=== PATIENT | male | born 1985 | race Two or more races ===

== ENCOUNTER 2022-03-02 11:45 | Inpatient (IN) | payer MEDICAID ==
[~2022-03-02] VITALS: Ht 188 cm; Wt 110.5 kg
[2022-03-02 12:30] LABS: Basophils # (auto) 0.1 10 ^3/uL (0-0.2); Basophils % (auto) 0.8 % (0.0-2.0); Eosinophils # (auto) 0.2 10 ^3/uL (0-0.8); Eosinophils % (auto) 1.7 % (0.0-7.0); Hematocrit 33.7 % (41.0-53.0); Hemoglobin 10.9 g/dL (13.5-17.5); Lymphocytes # (auto) 2.5 10 ^3/uL (0.4-5.4); Lymphocytes % (auto) 23.5 % (10.0-50.0); Mean Corpuscular Hemoglobin 29.8 pg (28.0-32.0); Mean Corpuscular Hgb Conc. 32.3 g/dL (32.0-36.0); Mean Corpuscular Volume 92.1 fL (80.0-100.0); Monocytes # (auto) 0.6 10 ^3/uL (0-1.3); Monocytes % (auto) 5.3 % (0.0-12.0); Neutrophils # (auto) 7.4 10 ^3/uL (1.6-8.6); Neutrophils % (auto) 68.7 % (37.0-80.0); Red Blood Cells 3.66 10^6/uL (4.5-5.90); Red Cell Distribution Width 12.8 % (11.8-14.3); White Blood Cell 10.7 10^3/uL (4.4-10.8)
[2022-03-02 15:36] LABS: Albumin 3.9 g/dL (3.4-5.0); Calcium 9.3 mg/dL (8.5-10.1); Magnesium 3.8 mg/dL (1.6-2.6); Potassium 5.4 mmol/L (3.5-5.1)
[2022-03-02 16:08] LABS: Bilirubin, Total 0.4 mg/dL (0.2-1.0); Total Protein 7.8 g/dL (6.4-8.2)
[2022-03-02 16:14] LABS: BUN/Creatinine Ratio 6.4
[2022-03-02] MEDS ORDERED: FUROSEMIDE 20 MG/2 ML VIAL IV ONE (16:15)
[2022-03-02] MEDS ORDERED: InsuLIN REG 1unit/0.01ml Soln (100units/ml) IV ONE (16:15)
[2022-03-02] MEDS ORDERED: ALBUTEROL SULF 2.5 MG/0.5ML(0.5%) NEB SOLN NEB ONE (16:15)
[2022-03-02] MEDS ORDERED: DEXTROSE (50%) 50ML SYRG IV ONE (16:15)
[2022-03-02] MEDS ORDERED: SODIUM ZIRCONIUM CYCL 10 GM PAK PO ONE (16:15)
[2022-03-02] MEDS ORDERED: CALCIUM GLUC 1,000mg/50ml-NS 50 ML IV ONE (16:15)
[2022-03-02] MEDS ORDERED: SODIUM BICARBONATE 8.4% INJ 50ML SYRINGE IV ONE (16:15)
[2022-03-02] MEDS ORDERED: MORPHINE SULFATE INJ 2 MG/ml SYRG IV PRN ×2 (17:00)
[2022-03-02] MEDS ORDERED: hydrALAZINE HCL 20 MG/ML VL IV PRN (17:00)
[2022-03-02] MEDS ORDERED: NITROGLYCERIN 0.4 MG SL TAB SL PRN (17:00)
[2022-03-02 18:23] LABS: BUN/Creatinine Ratio 6.6; Calcium 9.2 mg/dL (8.5-10.1); Potassium 4.4 mmol/L (3.5-5.1)
[2022-03-02] MEDS: HEPARIN SODIUM (PORCINE) 5000 UNITS/ML 1ML VIAL SC SCH (22:19)
[2022-03-02 23:00] VITALS: BP 167/95
[2022-03-02] MEDS ORDERED: RIVA2.5T PO (23:26)
[2022-03-02] MEDS ORDERED: CIPR500T4 PO (23:26)
[2022-03-02] MEDS ORDERED: MUPI2CRE17 EX (23:26)
[2022-03-03] VITALS: BP 155/97
[2022-03-03 05:00] VITALS: BP 157/96
[2022-03-03 05:23] LABS: Basophils # (auto) 0 10 ^3/uL (0-0.2); Basophils % (auto) 0.4 % (0.0-2.0); Eosinophils # (auto) 0.1 10 ^3/uL (0-0.8); Eosinophils % (auto) 1.3 % (0.0-7.0); Hematocrit 27.7 % (41.0-53.0); Hemoglobin 9.4 g/dL (13.5-17.5); Lymphocytes # (auto) 2.1 10 ^3/uL (0.4-5.4); Lymphocytes % (auto) 23.8 % (10.0-50.0); Mean Corpuscular Hemoglobin 31.2 pg (28.0-32.0); Mean Corpuscular Hgb Conc. 33.8 g/dL (32.0-36.0); Mean Corpuscular Volume 92.3 fL (80.0-100.0); Monocytes # (auto) 0.5 10 ^3/uL (0-1.3); Monocytes % (auto) 5.2 % (0.0-12.0); Neutrophils # (auto) 6.2 10 ^3/uL (1.6-8.6); Neutrophils % (auto) 69.3 % (37.0-80.0); Red Cell Distribution Width 12.8 % (11.8-14.3)
[2022-03-03 05:56] LABS: Potassium 4.7 mmol/L (3.5-5.1)
[2022-03-03 06:16] LABS: Albumin 3.4 g/dL (3.4-5.0); BUN/Creatinine Ratio 6.8; Bilirubin, Total 0.4 mg/dL (0.2-1.0); Calcium 8.9 mg/dL (8.5-10.1); Total Protein 6.6 g/dL (6.4-8.2)
[2022-03-03 09:00] VITALS: BP 162/95
[2022-03-03] MEDS: HEPARIN SODIUM (PORCINE) 5000 UNITS/ML 1ML VIAL SC SCH ×2 (11:03→22:15)
[2022-03-03 13:00] VITALS: BP 156/98
[2022-03-03 15:47] LABS: Hepatitis C Antibody Negative (Negative)
[2022-03-03] MEDS: SEVELAMER 800 MG TAB PO SCH (18:31)
[2022-03-03 22:00] VITALS: BP 149/96
[2022-03-04 05:00] VITALS: BP 153/93
[2022-03-04] MEDS ORDERED: SODIUM CHL 0.9% 1000 ML BAG XX ONE (07:00)
[2022-03-04 07:07] LABS: Basophils # (auto) 0.1 10 ^3/uL (0-0.2); Basophils % (auto) 0.7 % (0.0-2.0); Eosinophils # (auto) 0.1 10 ^3/uL (0-0.8); Eosinophils % (auto) 1.8 % (0.0-7.0); Hematocrit 30.2 % (41.0-53.0); Hemoglobin 10.1 g/dL (13.5-17.5); Lymphocytes # (auto) 2.1 10 ^3/uL (0.4-5.4); Mean Corpuscular Hemoglobin 30.7 pg (28.0-32.0); Mean Corpuscular Hgb Conc. 33.4 g/dL (32.0-36.0); Mean Corpuscular Volume 91.9 fL (80.0-100.0); Monocytes # (auto) 0.5 10 ^3/uL (0-1.3); Monocytes % (auto) 6.7 % (0.0-12.0); Neutrophils # (auto) 5.2 10 ^3/uL (1.6-8.6); Neutrophils % (auto) 64.8 % (37.0-80.0); Red Blood Cells 3.28 10^6/uL (4.5-5.90); Red Cell Distribution Width 12.7 % (11.8-14.3)
[2022-03-04 07:23] LABS: Potassium 4.8 mmol/L (3.5-5.1)
[2022-03-04 07:29] LABS: BUN/Creatinine Ratio 6.1; Calcium 9.2 mg/dL (8.5-10.1)
[2022-03-04 08:00] VITALS: BP 149/90
[2022-03-04] MEDS: B-COMPLEX W/ C & FOLIC ACID(NEPHROVITE TAB) PO SCH (08:54)
[2022-03-04] MEDS: SEVELAMER 800 MG TAB PO SCH ×3 (08:55→17:05)
[2022-03-04] MEDS: HEPARIN SODIUM (PORCINE) 5000 UNITS/ML 1ML VIAL SC SCH ×2 (10:00→21:00)
[2022-03-04 13:00] VITALS: BP 143/99
[2022-03-04 16:44] VITALS: BP 169/100
[2022-03-04] MEDS ORDERED: EPOETIN ALFA-EPBX 10,000 UNIT/1ML VIAL SC ONE (21:00)
[2022-03-04 21:59] VITALS: BP 155/99
[2022-03-05 05:00] VITALS: BP 148/95
[2022-03-05] MEDS ORDERED: SODIUM CHL 0.9% 1000 ML BAG XX ONE (07:00)
[2022-03-05 09:00] VITALS: BP 151/93
[2022-03-05] MEDS: B-COMPLEX W/ C & FOLIC ACID(NEPHROVITE TAB) PO SCH (09:38)
[2022-03-05] MEDS: SEVELAMER 800 MG TAB PO SCH ×3 (09:38→18:00)
[2022-03-05] MEDS: HEPARIN SODIUM (PORCINE) 5000 UNITS/ML 1ML VIAL SC SCH ×2 (09:39→21:52)
[2022-03-05 13:00] VITALS: BP 157/90
[2022-03-05 16:35] VITALS: BP 147/99
[2022-03-05] MEDS ORDERED: EPOETIN ALFA-EPBX 10,000 UNIT/1ML VIAL SC ONE (21:00)
[2022-03-05 22:00] VITALS: BP 152/95
[2022-03-06] VITALS (7 sets, daily range): BP systolic 122–175; BP diastolic 90–99
[2022-03-06] MEDS: SEVELAMER 800 MG TAB PO SCH ×3 (08:28→17:59)
[2022-03-06] MEDS: B-COMPLEX W/ C & FOLIC ACID(NEPHROVITE TAB) PO SCH (09:34)
[2022-03-06] MEDS: HEPARIN SODIUM (PORCINE) 5000 UNITS/ML 1ML VIAL SC SCH ×2 (09:34→21:47)
[2022-03-07 05:12] VITALS: BP 142/103
[2022-03-07 06:32] LABS: BUN/Creatinine Ratio 6.7; Calcium 9.4 mg/dL (8.5-10.1); Potassium 4.2 mmol/L (3.5-5.1)
[2022-03-07 09:04] VITALS: BP 143/101
[2022-03-07] MEDS: HEPARIN SODIUM (PORCINE) 5000 UNITS/ML 1ML VIAL SC SCH (10:03)
[2022-03-07] MEDS: B-COMPLEX W/ C & FOLIC ACID(NEPHROVITE TAB) PO SCH (10:03)
[2022-03-07] MEDS: SEVELAMER 800 MG TAB PO SCH ×2 (10:03→13:32)
[2022-03-07 13:00] VITALS: BP 153/98
[2022-03-07] MEDS ORDERED: CATHFLO ACTIVASE (ALTEPLASE) 2 MG VIAL IV ONE (13:30)
[2022-03-07 15:28] VITALS: BP 166/97
== END 2022-03-07 16:07 | disposition home or self-care (01) | DRG 425 ==
LOC: ER 11:45 → TELE 17:00 → TELE-WESTW 22:35 → WEST WING 03-05 11:21
PROVIDERS: ADMIT Registered Nurse; ATTEND Internal Medicine Pulmonary Disease
PROC: 5A1D70Z Performance of Urinary Filtration, Intermittent, Less than 6 Hours Per Day (ICD-10-PCS; principal; 2022-03-03)
PROC: 5A1D70Z Performance of Urinary Filtration, Intermittent, Less than 6 Hours Per Day (ICD-10-PCS; 2022-03-07)
DX: E87.5 Hyperkalemia (principal); E87.2 Acidosis; I12.0 Hypertensive chronic kidney disease with stage 5 chronic kidney disease or end stage renal disease; D63.1 Anemia in chronic kidney disease; E83.39 Other disorders of phosphorus metabolism; N18.6 End stage renal disease; Z20.822 Contact with and (suspected) exposure to COVID-19; E66.9 Obesity, unspecified; Z99.2 Dependence on renal dialysis; Z68.31 Body mass index [BMI] 31.0-31.9, adult; Z83.3 Family history of diabetes mellitus; Z91.15 Patient's noncompliance with renal dialysis
CPT/HCPCS: 36415; 36600; 71046; 76775; 80048; 80053; 82306; 82805; 82962; 83735; 83880; 83970; 84100; 84132; 84484; 85025; 85379; 86803; 87040; 87340; 90935; 93005; 94640; 96365; 96375; G0378; J1815

== ENCOUNTER 2022-04-20 19:54 | Emergency (ER) | payer MEDICAID ==
[~2022-04-20] VITALS: Ht 188 cm; Wt 91.0 kg
[~2022-04-20 19:54] MED LIST: CIPR500T4 PO; MUPI2CRE17 EX; RIVA2.5T PO
[2022-04-20] MEDS ORDERED: SODIUM CHLORIDE 0.9% 1,000 ML IV ONE (20:30)
[2022-04-20 21:33] LABS: Basophils # (auto) 0 10 ^3/uL (0-0.2); Basophils % (auto) 0.4 % (0.0-2.0); Eosinophils # (auto) 0.1 10 ^3/uL (0-0.8); Eosinophils % (auto) 1.1 % (0.0-7.0); Hematocrit 22.6 % (41.0-53.0); Hemoglobin 7.7 g/dL (13.5-17.5); Lymphocytes % (auto) 8.8 % (10.0-50.0); Mean Corpuscular Hemoglobin 30.6 pg (28.0-32.0); Mean Corpuscular Hgb Conc. 34.3 g/dL (32.0-36.0); Mean Corpuscular Volume 89.5 fL (80.0-100.0); Monocytes # (auto) 0.8 10 ^3/uL (0-1.3); Monocytes % (auto) 6.6 % (0.0-12.0); Neutrophils # (auto) 9.8 10 ^3/uL (1.6-8.6); Neutrophils % (auto) 83.1 % (37.0-80.0); Red Blood Cells 2.53 10^6/uL (4.5-5.90); Red Cell Distribution Width 14.6 % (11.8-14.3); White Blood Cell 11.7 10^3/uL (4.4-10.8)
[2022-04-20 21:48] LABS: INR 0.94 (0.9-1.15)
[2022-04-20 21:53] LABS: Albumin 3.2 g/dL (3.4-5.0); Anion Gap 6 (5-15); Blood Urea Nitrogen 30 mg/dL (7-18); Calcium 8.5 mg/dL (8.5-10.1); Carbon Dioxide 32 mmol/L (21-32); Chloride 101 mmol/L (98-107); Glucose 167 mg/dL (74-106); Potassium 4.6 mmol/L (3.5-5.1); Sodium 139 mmol/L (136-145)
[2022-04-20 21:56] LABS: Alanine Aminotransferase 17 U/L (16-61); Alkaline Phosphatase 128 U/L (45-117); Aspartate Aminotransferase < 3 U/L (15-37); BUN/Creatinine Ratio 3.6; GFR African American 9 mL/min; GFR Non-African American 8 mL/min
[2022-04-20 21:57] LABS: Bilirubin, Total 0.2 mg/dL (0.2-1.0); Total Protein 6.6 g/dL (6.4-8.2)
[2022-04-21 00:04] LABS: Urine Bacteria NONE SEEN /hpf (None Seen); Urine Blood Negative /uL (Negative); Urine Specific Gravity 1.006 (1.001-1.035); Urine WBC 12 /hpf (0 - 3)
[2022-04-21] MEDS ORDERED: CIPROFLOXACIN HCL 500 MG TAB PO ONE (00:45)
[2022-04-21 01:00] VITALS: BP 131/89
[2022-04-21] MEDS ORDERED: CIPR-173 PO (01:44)
== END 2022-04-21 01:52 | disposition home or self-care (01) ==
LOC: EDBD 19:54 → ER 19:57
DX: R55 Syncope and collapse (principal); I12.0 Hypertensive chronic kidney disease with stage 5 chronic kidney disease or end stage renal disease; N18.6 End stage renal disease; Z99.2 Dependence on renal dialysis; Z79.899 Other long term (current) drug therapy
CPT/HCPCS: 36415; 70450; 71045; 80053; 81001; 83880; 84484; 85025; 85610; 85730; 96360; 99285; J7030